=== PATIENT | female | born 1950 | race Caucasian/White ===

== ENCOUNTER 2022-04-14 08:56 | Day surgery (SDC) | payer OTHER ==
[2022-04-06 14:38] VITALS: BMI 21.9
[2022-04-14] MEDS ORDERED: ePHEDrine SULFATE 50 MG/1 ML AMPULE ONE (09:19)
[2022-04-14 11:20] VITALS: PULSE 84
[2022-04-14 11:27] VITALS: BP 101/65; RESP 18; TEMP 97.9
== END 2022-04-14 11:30 ==
LOC: FASU-ENDO 08:56
PROVIDERS: ATTEND Internal Medicine Gastroenterology
PROC: 0DJD8ZZ Inspection of Lower Intestinal Tract, Via Natural or Artificial Opening Endoscopic (ICD-10-PCS; principal; 2022-04-14 10:36)
DX: D64.9 Anemia, unspecified (principal)

== ENCOUNTER 2024-01-30 01:02 | Inpatient (IN) | payer OTHER ==
[2024-01-30] MEDS ORDERED: PIPERACILLIN/TAZOB 4.5 GM 4.5 GM/100 ML BAG IVPB ONE (02:09)
[2024-01-30] MEDS ORDERED: ACETAMINOPHEN INJECTION 100 ML ONE (02:09)
[2024-01-30] MEDS: PIPERACILLIN/TAZOBACTAM 4.5 GM VIAL IVPB ONE (02:20)
[2024-01-30] MEDS: ACETAMINOPHEN 1000 MG/100 ML BAG IVPB ONE (02:44)
[2024-01-30] MEDS ORDERED: VANCOMYCIN/WATER 1250 MG 1,250 MG/250 ML BAG IVPB ONE (02:45)
[2024-01-30] MEDS: VANCOMYCIN 1,250 MG in DEXTROSE 5%-WATER - 500 ML IVPB ONE (03:06)
[2024-01-30 03:33] LABS: VENOUS BASE EXCESS 8.7 mmol/L (-2-2); VENOUS O2 SATURATION 96.5 % (70-80); VENOUS PCO2 79.3 mmHg (38-52); VENOUS PH 7.303 (7.310-7.410)
[2024-01-30 03:37] LABS: INR 1.2 (0.83-1.09); PROTHROMBIN TIME (PATIENT) 13.7 SEC (9.7-13.0)
[2024-01-30 03:40] LABS: ACTIVATED PTT 27.8 SECONDS (25.2-36.5)
[2024-01-30 04:14] LABS: ALBUMIN 2.8 g/dl (3.4-5.0); BILIRUBIN,TOTAL 0.5 mg/dL (0.2-1); CALCIUM 8.8 mg/dL (8.5-10.1); CREATININE 0.8 mg/dL (0.55-1.3); POTASSIUM 5.8 mmol/L (3.5-5.1); TOT PROT 6.5 g/dl (6.4-8.2)
[2024-01-30 04:22] LABS: BASO % 0.3 % (0-2.0); EOS % 0.2 % (0-4.5); HEMATOCRIT 41.2 % (32.4-45.2); LYMPH % 16.5 % (8-40); MCH 31.5 pg (25.7-33.7); MCHC 31.7 g/dl (32.0-36.0); MEAN CELL VOLUME 99.5 fl (80-96); MEAN PLT VOLUME 9.5 fl (7.5-11.1); MONO % 11.8 % (3.8-10.2); NEUT % 71.2 % (42.8-82.8); PLATELET COUNT 179 10^3/uL (134-434); RBC 4.14 M/mm3 (3.60-5.2); RDW 16.3 % (11.6-15.6); WHITE BLOOD COUNT 8.3 K/mm3 (4.0-10.0)
[2024-01-30 05:28] LABS: N-TERMINAL BNP 14216.8 pg/ml (5-450)
[2024-01-30 05:36] LABS: POTASSIUM 4.4 mmol/L (3.5-5.1)
[2024-01-30] MEDS: SODIUM CHLORIDE 0.9% 500 ML INFUS.BAG IV ONE (05:37)
[2024-01-30 05:38] LABS: ALBUMIN 2.7 g/dl (3.4-5.0); CALCIUM 8.5 mg/dL (8.5-10.1)
[2024-01-30 05:39] LABS: BLOOD UREA NITROGEN 39.9 mg/dL (7-18)
[2024-01-30 05:42] LABS: CREATININE 0.9 mg/dL (0.55-1.3)
[2024-01-30 05:43] LABS: BILIRUBIN,TOTAL 0.5 mg/dL (0.2-1); TOT PROT 6.1 g/dl (6.4-8.2)
[2024-01-30 05:44] LABS: ARTERIAL BLD GAS O2 SATURATION 86.3 % (95-98); ARTERIAL BLOOD GAS BASE EXCESS 6.2 mmol/L (-2-2); ARTERIAL BLOOD GAS PO2 62.4 mmHg (80-100); ARTERIAL BLOOD GAS pH 7.237 (7.350-7.450)
[2024-01-30] MEDS ORDERED: NOREPINEPHRINE BITARTRATE 4 MG/4 ML ML IV ONE (05:50)
[2024-01-30] MEDS: NOREPINEPHRINE BITARTRATE 4,000 MCG in DEXTROSE 5%-WATER - 496 ML IV SCH (06:00)
[2024-01-30 06:18] LABS: EPI CELLS 1 /uL (0-25.1); HYALINE CASTS 3 /uL (0-3.1); PH,URINE 5.5 (5.0-8.0); URINE APPEARANCE CLOUDY; URINE BACTERIA 2431 /uL (0-1359); URINE BILIRUBIN NEGATIVE (NEGATIVE); URINE COLOR DK YELLOW; URINE GLUCOSE (UA) NEGATIVE (NEGATIVE); URINE KETONE TRACE (NEGATIVE); URINE LEUK ESTERASE NEGATIVE (NEGATIVE); URINE NITRITE NEGATIVE (NEGATIVE); URINE PROTEIN 1+ (NEGATIVE)
[2024-01-30 06:19] LABS: URINE RBC 75 /uL (0-23.9)
[2024-01-30] MEDS: SODIUM CHLORIDE 500 ML IV STA (09:45)
[2024-01-30] MEDS ORDERED: ALBUTEROL SO4 2.5/IPRATROPIUM 0.5 INH SOL 3 ML VIAL.NEB. NEB PRN (09:46)
[2024-01-30 09:47] LABS: MAGNESIUM 2.2 mg/dL (1.8-2.4)
[2024-01-30 09:51] LABS: PHOSPHOROUS 3.7 mg/dL (2.5-4.9)
[2024-01-30] MEDS: ASCORBIC ACID 500 MG TABLET (FP) PO SCH (10:36)
[2024-01-30] MEDS: APIXABAN 5 MG TABLET PO SCH (10:36)
[2024-01-30] MEDS: methylPREDNISolone NA SUCC 40 MG/1 ML VIAL IVPB SCH (10:36)
[2024-01-30] MEDS: PIPERACILLIN/TAZOB 4.5 GM 4.5 GM/100 ML BAG IVPB SCH (11:48)
[2024-01-30] MEDS: BENZTROPINE MESYLATE 0.5 MG TABLET (FP) PO SCH (11:48)
[2024-01-30] MEDS: ALBUTEROL SO4 2.5/IPRATROPIUM 0.5 INH SOL 3 ML VIAL.NEB. NEB SCH (12:00)
[2024-01-30] MEDS: LACTATED RINGERS SOLUTION 1000 ML INFUS.BAG IV ONE (14:00)
[2024-01-30] MEDS: LACTATED RINGERS SOLUTION 1,000 ML/1,000 ML INFUS.BAG IV SCH ×2 (15:29→21:45)
[2024-01-30] MEDS: VANCOMYCIN/WATER FOR INJ (PEG) 1 GM/200 ML BAG IVPB SCH (18:00)
[2024-01-30 18:44] LABS: ARTERIAL BLD GAS O2 SATURATION 96.5 % (95-98); ARTERIAL BLOOD GAS BASE EXCESS 4.7 mmol/L (-2-2); ARTERIAL BLOOD GAS PO2 79.9 mmHg (80-100); ARTERIAL BLOOD GAS pH 7.472 (7.350-7.450)
[2024-01-30 18:46] LABS: ALLENS TEST POSITIVE
[2024-01-30 18:48] LABS: VENT RATE 14
[2024-01-30] MEDS: MIRTAZAPINE 15 MG TABLET (FP) PO SCH (21:45)
[2024-01-30] MEDS: risperiDONE 0.25 MG TABLET PO SCH (21:45)
[2024-01-30] MEDS: ARTIFICIAL TEARS OPHTHALMIC DROPS OU SCH (21:47)
[2024-01-30] MEDS: MUPIROCIN 2% TOPICAL OINTMENT FOR DECOLONIZATION NS SCH (21:48)
[2024-01-30] MEDS: CHLORHEXIDINE GLUCONATE 4% CLEANSER FOR DECOLONIZATION TP SCH (21:59)
[2024-01-30] MEDS ORDERED: GLYCERIN OP SCH (22:00)
[2024-01-30] MEDS ORDERED: CARBOXYMETHYLCELL OP SCH (22:00)
[2024-01-30] MEDS ORDERED: [UNRECOGNIZED DRUG - OTHER] OP SCH (22:00)
[2024-01-30] MEDS: VANCOMYCIN 1 GM PREMIX (F) 1 GM/200 ML BAG IVPB SCH (22:39)
[2024-01-30] MEDS: PIPERACILLIN/TAZOB 4.5 GM 4.5 GM in DEXTROSE 5%-WATER 100 ML IVPB SCH (22:39)
[2024-01-31] MEDS: PIPERACILLIN/TAZOB 3.375 GM 3.375 GM in DEXTROSE 5%-WATER - 50 ML IVPB SCH (01:24)
[2024-01-31 06:28] LABS: BASO % 0.8 % (0-2.0); EOS % 0.3 % (0-4.5); HEMATOCRIT 39.1 % (32.4-45.2); HEMOGLOBIN 12.3 GM/dL (10.7-15.3); LYMPH % 13.6 % (8-40); MCH 31.8 pg (25.7-33.7); MCHC 31.6 g/dl (32.0-36.0); MEAN CELL VOLUME 100.7 fl (80-96); MONO % 8.7 % (3.8-10.2); NEUT % 76.6 % (42.8-82.8); PLATELET COUNT 119 10^3/uL (134-434); RBC 3.88 M/mm3 (3.60-5.2); RDW 16.5 % (11.6-15.6); WHITE BLOOD COUNT 7.8 K/mm3 (4.0-10.0)
[2024-01-31 06:54] LABS: CALCIUM 8.6 mg/dL (8.5-10.1)
[2024-01-31 06:55] LABS: ALBUMIN 2.4 g/dl (3.4-5.0); BLOOD UREA NITROGEN 32.6 mg/dL (7-18)
[2024-01-31 06:58] LABS: CREATININE 0.6 mg/dL (0.55-1.3)
[2024-01-31 06:59] LABS: BILIRUBIN,TOTAL 0.6 mg/dL (0.2-1)
[2024-01-31 07:00] LABS: TOT PROT 5.4 g/dl (6.4-8.2)
[2024-01-31 07:43] LABS: ARTERIAL BLD GAS O2 SATURATION 93.3 % (95-98); ARTERIAL BLOOD GAS BASE EXCESS 4.8 mmol/L (-2-2); ARTERIAL BLOOD GAS PO2 72.7 mmHg (80-100); ARTERIAL BLOOD GAS pH 7.335 (7.350-7.450)
[2024-01-31 07:45] LABS: ALLENS TEST POSITIVE
[2024-01-31] MEDS: LACTATED RINGERS SOLUTION 1000 ML INFUS.BAG IV ONE (08:21)
[2024-01-31] MEDS: SERTRALINE HCL 50 MG TABLET (FP) PO SCH (09:06)
[2024-01-31] MEDS ORDERED: ACETAMINOPHEN 325 MG TABLET (FP) PO PRN (17:51)
[2024-01-31] MEDS: dilTIAZem HCL 50 MG/10 ML - 10 ML VIAL IVPUSH PRN (18:14)
[2024-01-31] MEDS: ACETAMINOPHEN 1000 MG/100 ML BAG IVPB PRN (18:36)
[2024-02-01 06:32] LABS: BASO % 0.5 % (0-2.0); EOS % 0.4 % (0-4.5); HEMATOCRIT 40.8 % (32.4-45.2); HEMOGLOBIN 12.9 GM/dL (10.7-15.3); LYMPH % 15.1 % (8-40); MCH 31.7 pg (25.7-33.7); MCHC 31.6 g/dl (32.0-36.0); MEAN CELL VOLUME 100.2 fl (80-96); MEAN PLT VOLUME 8.7 fl (7.5-11.1); MONO % 9.8 % (3.8-10.2); NEUT % 74.2 % (42.8-82.8); PLATELET COUNT 161 10^3/uL (134-434); RBC 4.08 M/mm3 (3.60-5.2); RDW 16.3 % (11.6-15.6); WHITE BLOOD COUNT 7.5 K/mm3 (4.0-10.0)
[2024-02-01 06:42] LABS: ALBUMIN 2.6 g/dl (3.4-5.0); BLOOD UREA NITROGEN 26.2 mg/dL (7-18); CALCIUM 8.8 mg/dL (8.5-10.1)
[2024-02-01 06:46] LABS: CREATININE 0.6 mg/dL (0.55-1.3)
[2024-02-01 06:48] LABS: BILIRUBIN,TOTAL 0.5 mg/dL (0.2-1); TOT PROT 5.8 g/dl (6.4-8.2)
[2024-02-01] MEDS: LACTATED RINGERS SOLUTION 1,000 ML/1,000 ML INFUS.BAG IV SCH (11:38)
[2024-02-01] MEDS: dilTIAZem HCL 30 MG TABLET PO SCH (11:38)
[2024-02-02] MEDS ORDERED: dilTIAZem HCL 50 MG/10 ML - 10 ML VIAL IVPUSH PRN (14:46)
[2024-02-02] MEDS: ALBUTEROL SO4 2.5/IPRATROPIUM 0.5 INH SOL 3 ML VIAL.NEB. NEB SCH (15:52)
[2024-02-02] MEDS: dilTIAZem HCL 30 MG TABLET PO SCH (17:56)
[2024-02-02] MEDS: LACTATED RINGERS SOLUTION 1,000 ML/1,000 ML INFUS.BAG IV SCH (17:57)
[2024-02-02] MEDS ORDERED: PIPERACILLIN/TAZOB 3.375 GM 3.375 GM in DEXTROSE 5%-WATER - 50 ML IVPB SCH (18:00)
[2024-02-02] MEDS: PIPERACILLIN/TAZOB 3.375 GM 50 ML IVPB SCH (19:13)
[2024-02-02] MEDS: MUPIROCIN 2% TOPICAL OINTMENT FOR DECOLONIZATION NS SCH (21:56)
[2024-02-02] MEDS: ARTIFICIAL TEARS OPHTHALMIC DROPS OU SCH (22:33)
[2024-02-02] MEDS: MIRTAZAPINE 15 MG TABLET (FP) PO SCH (22:34)
[2024-02-02] MEDS: APIXABAN 5 MG TABLET PO SCH (22:34)
[2024-02-02] MEDS: BENZTROPINE MESYLATE 0.5 MG TABLET (FP) PO SCH (22:34)
[2024-02-02] MEDS: risperiDONE 0.25 MG TABLET PO SCH (22:34)
[2024-02-02] MEDS: CHLORHEXIDINE GLUCONATE 4% CLEANSER FOR DECOLONIZATION TP SCH (22:45)
[2024-02-03 08:32] LABS: POTASSIUM 4.4 mmol/L (3.5-5.1)
[2024-02-03 08:43] LABS: ALBUMIN 2.8 g/dl (3.4-5.0); BLOOD UREA NITROGEN 27.7 mg/dL (7-18); CALCIUM 9.4 mg/dL (8.5-10.1)
[2024-02-03 08:46] LABS: CREATININE 0.6 mg/dL (0.55-1.3)
[2024-02-03 08:48] LABS: BILIRUBIN,TOTAL 0.6 mg/dL (0.2-1)
[2024-02-03] MEDS: ASCORBIC ACID 500 MG TABLET (FP) PO SCH (10:40)
[2024-02-03] MEDS: SERTRALINE HCL 50 MG TABLET (FP) PO SCH (10:41)
[2024-02-03] MEDS: methylPREDNISolone NA SUCC 40 MG/1 ML VIAL IVPB SCH (10:41)
[2024-02-05 01:27] VITALS: RESP 18
[2024-02-05] MEDS: predniSONE 20 MG TABLET (UD) PO SCH (09:34)
[2024-02-05 09:46] LABS: BASO % 0.1 % (0-2.0); EOS % 0.1 % (0-4.5); LYMPH % 13.1 % (8-40); MCH 31.9 pg (25.7-33.7); MCHC 31.9 g/dl (32.0-36.0); MEAN CELL VOLUME 99.9 fl (80-96); MEAN PLT VOLUME 8.6 fl (7.5-11.1); MONO % 10.6 % (3.8-10.2); NEUT % 76.1 % (42.8-82.8); PLATELET COUNT 198 10^3/uL (134-434); RDW 17.1 % (11.6-15.6); WHITE BLOOD COUNT 7.9 K/mm3 (4.0-10.0)
[2024-02-05 10:18] LABS: POTASSIUM 4.2 mmol/L (3.5-5.1)
[2024-02-05 10:19] LABS: CALCIUM 9.5 mg/dL (8.5-10.1)
[2024-02-05 10:20] LABS: BLOOD UREA NITROGEN 28.1 mg/dL (7-18)
[2024-02-05 10:23] LABS: CREATININE 0.6 mg/dL (0.55-1.3)
[2024-02-05 12:30] VITALS: BMI 27.8
[2024-02-05 14:31] VITALS: BP 104/71; PULSE 87; TEMP 99.3
== END 2024-02-05 16:55 | DRG 871 ==
LOC: JER 01:02 → JERBED 05:48 → JICU 08:30 → J4S 02-02 15:01
PROVIDERS: ADMIT Internal Medicine Pulmonary Disease; ATTEND Internal Medicine
DX: A41.9 Sepsis, unspecified organism (principal); J18.9 Pneumonia, unspecified organism; J96.22 Acute and chronic respiratory failure with hypercapnia; R65.21 Severe sepsis with septic shock; J44.1 Chronic obstructive pulmonary disease with (acute) exacerbation; I48.92 Unspecified atrial flutter; F41.9 Anxiety disorder, unspecified; F20.9 Schizophrenia, unspecified; F31.9 Bipolar disorder, unspecified; I48.91 Unspecified atrial fibrillation; G20.C Parkinsonism, unspecified; I27.20 Pulmonary hypertension, unspecified
CPT/HCPCS: 0241U-QW; 36415; 36600; 71045-TC-FY; 71275-TC; 80048; 80053; 81003; 82803; 82962; 83605; 83735; 83880; 84100; 84484; 85025; 85610; 85730; 87040; 87086; 87481; 87899; 93005; 93010; 93306-TC; 94640; 94660; 97161-GP; 99291; J0131; Q9967

== ENCOUNTER 2024-02-16 00:43 | Inpatient (IN) | payer OTHER ==
[2024-02-16 01:22] LABS: BASO % 0.3 % (0-2.0); EOS % 0.6 % (0-4.5); HEMATOCRIT 43.5 % (32.4-45.2); HEMOGLOBIN 13.7 GM/dL (10.7-15.3); LYMPH % 8.4 % (8-40); MCH 32.2 pg (25.7-33.7); MCHC 31.6 g/dl (32.0-36.0); MEAN CELL VOLUME 102.1 fl (80-96); MEAN PLT VOLUME 9.7 fl (7.5-11.1); NEUT % 78.7 % (42.8-82.8); PLATELET COUNT 149 10^3/uL (134-434); RBC 4.26 M/mm3 (3.60-5.2); RDW 17.3 % (11.6-15.6); WHITE BLOOD COUNT 8.5 K/mm3 (4.0-10.0)
[2024-02-16 01:26] LABS: VENOUS O2 SATURATION 41.9 % (70-80)
[2024-02-16] MEDS ORDERED: ACETAMINOPHEN INJECTION 100 ML ONE (01:42)
[2024-02-16 01:45] LABS: POTASSIUM 4.6 mmol/L (3.5-5.1)
[2024-02-16 01:47] LABS: ALBUMIN 2.8 g/dl (3.4-5.0); BLOOD UREA NITROGEN 35.8 mg/dL (7-18); CALCIUM 9.5 mg/dL (8.5-10.1)
[2024-02-16] MEDS: ACETAMINOPHEN 1000 MG/100 ML BAG IVPB ONE (01:47)
[2024-02-16 01:50] LABS: CREATININE 0.6 mg/dL (0.55-1.3)
[2024-02-16 01:52] LABS: BILIRUBIN,TOTAL 0.5 mg/dL (0.2-1); TOT PROT 6.2 g/dl (6.4-8.2); VENOUS PH 7.187 (7.310-7.410)
[2024-02-16 01:55] LABS: N-TERMINAL BNP 13777.9 pg/ml (5-450)
[2024-02-16 01:56] LABS: ARTERIAL BLD GAS O2 SATURATION 96.7 % (95-98); ARTERIAL BLOOD GAS PO2 109.2 mmHg (80-100); ARTERIAL BLOOD GAS pH 7.239 (7.350-7.450)
[2024-02-16] MEDS ORDERED: VANCOMYCIN HCL 1,500 MG in DEXTROSE 5%-WATER - 500 ML IVPB ONE (02:14)
[2024-02-16] MEDS ORDERED: CEFEPIME HCL/D5W 1 GM/50 ML BAG IVPB ONE (02:32)
[2024-02-16] MEDS: CEFEPIME HCL 1 GM VIAL (RESTRICTED TO ID) IVPB ONE (02:42)
[2024-02-16 02:55] LABS: EPI CELLS 6 /uL (0-25.1); HYALINE CASTS 1 /uL (0-3.1); PH,URINE 5.5 (5.0-8.0); URINE APPEARANCE CLEAR; URINE BACTERIA 8 /uL (0-1359); URINE BILIRUBIN 1+ (NEGATIVE); URINE COLOR DK YELLOW; URINE GLUCOSE (UA) NEGATIVE (NEGATIVE); URINE KETONE TRACE (NEGATIVE); URINE LEUK ESTERASE NEGATIVE (NEGATIVE); URINE NITRITE NEGATIVE (NEGATIVE); URINE PROTEIN 1+ (NEGATIVE); URINE RBC 15 /uL (0-23.9); URINE WBC 10 /uL (0-25.8)
[2024-02-16] MEDS: VANCOMYCIN HCL IN 5 % DEXTROSE 1,500 MG/300 ML BAG IVPB ONE (03:40)
[2024-02-16 03:54] LABS: ARTERIAL BLD GAS O2 SATURATION 96.9 % (95-98); ARTERIAL BLOOD GAS BASE EXCESS 12.4 mmol/L (-2-2); ARTERIAL BLOOD GAS PO2 114.5 mmHg (80-100); ARTERIAL BLOOD GAS pH 7.214 (7.350-7.450)
[2024-02-16 04:33] LABS: ALLENS TEST POSITIVE
[2024-02-16 04:35] LABS: VENT RATE 12
[2024-02-16] MEDS ORDERED: ALBUTEROL SO4 2.5/IPRATROPIUM 0.5 INH SOL 3 ML VIAL.NEB. NEB ONE (04:53)
[2024-02-16] MEDS: methylPREDNISolone NA SUCC 125 MG/2 ML VIAL IVPUSH ONE (04:57)
[2024-02-16] MEDS: FUROSEMIDE 40 MG/4 ML INJECTABLE VIAL IVPUSH ONE (04:57)
[2024-02-16] MEDS ORDERED: METOPROLOL TARTRATE 5 MG/5 ML VIAL IVPUSH PRN (05:50)
[2024-02-16] MEDS: LEVALBUTEROL HCL 0.31 MG/3 ML VIAL.NEB IH SCH (06:35)
[2024-02-16 06:37] LABS: ARTERIAL BLD GAS O2 SATURATION 98.8 % (95-98); ARTERIAL BLOOD GAS BASE EXCESS 8.6 mmol/L (-2-2); ARTERIAL BLOOD GAS PO2 169.5 mmHg (80-100); ARTERIAL BLOOD GAS pH 7.259 (7.350-7.450)
[2024-02-16] MEDS: ENOXAPARIN NA (PORCINE) 40 MG/0.4 ML DISP.SYRIN SQ ONE (06:39)
[2024-02-16 07:05] LABS: VENT RATE 20
[2024-02-16 07:08] LABS: HEMATOCRIT 40.9 % (32.4-45.2); HEMOGLOBIN 12.7 GM/dL (10.7-15.3); MCHC 30.9 g/dl (32.0-36.0); MEAN CELL VOLUME 103.4 fl (80-96); MEAN PLT VOLUME 9.7 fl (7.5-11.1); PLATELET COUNT 143 10^3/uL (134-434); RBC 3.96 M/mm3 (3.60-5.2); RDW 16.9 % (11.6-15.6); WHITE BLOOD COUNT 8.7 K/mm3 (4.0-10.0)
[2024-02-16 07:50] LABS: POTASSIUM 4.5 mmol/L (3.5-5.1)
[2024-02-16 07:52] LABS: ALBUMIN 2.7 g/dl (3.4-5.0); BLOOD UREA NITROGEN 35.9 mg/dL (7-18); CALCIUM 9.3 mg/dL (8.5-10.1); MAGNESIUM 2.1 mg/dL (1.8-2.4)
[2024-02-16 07:56] LABS: CREATININE 0.6 mg/dL (0.55-1.3); PHOSPHOROUS 3.7 mg/dL (2.5-4.9)
[2024-02-16 07:57] LABS: BILIRUBIN,TOTAL 0.6 mg/dL (0.2-1); TOT PROT 6.1 g/dl (6.4-8.2)
[2024-02-16] MEDS ORDERED: ACETAMINOPHEN 1000 MG/100 ML BAG IVPB PRN (08:24)
[2024-02-16] MEDS: METOPROLOL TARTRATE 5 MG/5 ML VIAL IVPB SCH (09:52)
[2024-02-16] MEDS: ARTIFICIAL TEARS OPHTHALMIC DROPS OU SCH (09:53)
[2024-02-16] MEDS: BENZTROPINE MESYLATE 0.5 MG TABLET (FP) PO SCH (09:55)
[2024-02-16] MEDS: ENOXAPARIN NA (PORCINE) 80 MG/0.8 ML DISP.SYRIN SQ SCH (09:55)
[2024-02-16] MEDS: FUROSEMIDE 40 MG/4 ML INJECTABLE VIAL IVPUSH SCH (09:57)
[2024-02-16] MEDS: SERTRALINE HCL 50 MG TABLET (FP) PO SCH (09:57)
[2024-02-16] MEDS: BUDESONIDE/FORMETEROL FUMARATE 160/4.5 mcg INHALER IH SCH (10:16)
[2024-02-16 11:34] LABS: ARTERIAL BLD GAS O2 SATURATION 96.8 % (95-98); ARTERIAL BLOOD GAS BASE EXCESS 15.2 mmol/L (-2-2); ARTERIAL BLOOD GAS PO2 95.8 mmHg (80-100); ARTERIAL BLOOD GAS pH 7.369 (7.350-7.450)
[2024-02-16 11:35] LABS: ALLENS TEST POSITIVE
[2024-02-16] MEDS: AZITHROMYCIN IVPB 500 MG/250 ML BAG IVPB ONE (12:09)
[2024-02-16] MEDS: CEFTRIAXONE 1 G/50 ML PREMIX 50 ML IVPB SCH (12:09)
[2024-02-16] MEDS: methylPREDNISolone NA SUCC 40 MG/1 ML VIAL IVPUSH SCH (13:02)
[2024-02-16] MEDS: SODIUM CHLORIDE 0.9% 250 ML INFUS.BAG IV ONE (16:04)
[2024-02-16] MEDS: DEXTROSE 5%-0.45% SALINE 1,000 ML IV SCH (16:47)
[2024-02-16] MEDS: risperiDONE 0.25 MG TABLET PO SCH (21:54)
[2024-02-16] MEDS: MIRTAZAPINE 15 MG TABLET (FP) PO SCH (21:54)
[2024-02-17 08:18] LABS: BASO % 0.2 % (0-2.0); EOS % 0.1 % (0-4.5); HEMATOCRIT 36.9 % (32.4-45.2); HEMOGLOBIN 11.7 GM/dL (10.7-15.3); MCH 31.8 pg (25.7-33.7); MCHC 31.7 g/dl (32.0-36.0); MEAN CELL VOLUME 100.2 fl (80-96); MEAN PLT VOLUME 9.9 fl (7.5-11.1); MONO % 3.2 % (3.8-10.2); NEUT % 90.5 % (42.8-82.8); PLATELET COUNT 151 10^3/uL (134-434); RBC 3.68 M/mm3 (3.60-5.2); RDW 16.5 % (11.6-15.6); WHITE BLOOD COUNT 7.5 K/mm3 (4.0-10.0)
[2024-02-17 08:36] LABS: POTASSIUM 3.7 mmol/L (3.5-5.1)
[2024-02-17 08:47] LABS: ALBUMIN 2.5 g/dl (3.4-5.0); CALCIUM 8.7 mg/dL (8.5-10.1); MAGNESIUM 1.9 mg/dL (1.8-2.4)
[2024-02-17 08:50] LABS: CREATININE 0.7 mg/dL (0.55-1.3)
[2024-02-17 08:51] LABS: PHOSPHOROUS 2.4 mg/dL (2.5-4.9)
[2024-02-17 08:52] LABS: BILIRUBIN,TOTAL 0.5 mg/dL (0.2-1); TOT PROT 5.6 g/dl (6.4-8.2)
[2024-02-17] MEDS: POLYETHYLENE GLYCOL (HEALTHYLAX) 3350 17 GM PACKET PO SCH (11:19)
[2024-02-17] MEDS: APIXABAN 5 MG TABLET PO SCH (11:19)
[2024-02-17] MEDS: AZITHROMYCIN IVPB 250 MG in DEXTROSE 5%-WATER - 250 ML IVPB SCH (11:20)
[2024-02-17] MEDS: POTASSIUM PHOSPHATE 15 MM in SODIUM CHLORIDE 250 ML IVPB ONE (11:50)
[2024-02-18 08:03] LABS: BASO % 0.1 % (0-2.0); HEMATOCRIT 37.9 % (32.4-45.2); LYMPH % 10.5 % (8-40); MCH 31.6 pg (25.7-33.7); MCHC 31.7 g/dl (32.0-36.0); MEAN CELL VOLUME 99.6 fl (80-96); MEAN PLT VOLUME 9.5 fl (7.5-11.1); MONO % 3.8 % (3.8-10.2); NEUT % 85.6 % (42.8-82.8); PLATELET COUNT 147 10^3/uL (134-434); RDW 16.1 % (11.6-15.6); WHITE BLOOD COUNT 5.8 K/mm3 (4.0-10.0)
[2024-02-18 08:16] LABS: POTASSIUM 4.1 mmol/L (3.5-5.1)
[2024-02-18 08:23] LABS: ALBUMIN 2.6 g/dl (3.4-5.0); BLOOD UREA NITROGEN 40.9 mg/dL (7-18)
[2024-02-18 08:26] LABS: CREATININE 0.5 mg/dL (0.55-1.3); PHOSPHOROUS 2.8 mg/dL (2.5-4.9)
[2024-02-18 08:28] LABS: BILIRUBIN,TOTAL 0.5 mg/dL (0.2-1); TOT PROT 5.7 g/dl (6.4-8.2)
[2024-02-18] MEDS: PANTOPRAZOLE SODIUM 40 MG VIAL IVPUSH SCH (11:00)
[2024-02-18] MEDS: INSULIN ASPART SLIDING SCALE (NOVOLOG) 1 VIAL SQ SCH (16:48)
[2024-02-19 08:39] LABS: HEMATOCRIT 38.6 % (32.4-45.2); HEMOGLOBIN 12.6 GM/dL (10.7-15.3); MCH 31.9 pg (25.7-33.7); MCHC 32.8 g/dl (32.0-36.0); MEAN CELL VOLUME 97.5 fl (80-96); PLATELET COUNT 154 10^3/uL (134-434); RBC 3.96 M/mm3 (3.60-5.2); RDW 16.4 % (11.6-15.6); WHITE BLOOD COUNT 5.1 K/mm3 (4.0-10.0)
[2024-02-19] MEDS: CALCIUM CHLORIDE 1 GM/10 ML *DISP.SYRIN IVPUSH ONE (10:17)
[2024-02-19] MEDS: CALCIUM GLUCONATE 10% - 1,000 MG/10 ML VIAL IVPUSH ONE (10:42)
[2024-02-19] MEDS ORDERED: BISACODYL 10 MG SUPP.RECT PR PRN ×2 (11:00→22:00)
[2024-02-19 11:54] LABS: POTASSIUM 3.9 mmol/L (3.5-5.1)
[2024-02-19 11:56] LABS: CALCIUM 9.1 mg/dL (8.5-10.1)
[2024-02-19 11:57] LABS: ALBUMIN 2.6 g/dl (3.4-5.0); BLOOD UREA NITROGEN 39.5 mg/dL (7-18); MAGNESIUM 2.2 mg/dL (1.8-2.4)
[2024-02-19 12:00] LABS: CREATININE 0.7 mg/dL (0.55-1.3); PHOSPHOROUS 2.9 mg/dL (2.5-4.9)
[2024-02-19 12:02] LABS: BILIRUBIN,TOTAL 0.6 mg/dL (0.2-1); TOT PROT 5.9 g/dl (6.4-8.2)
[2024-02-19 12:45] VITALS: BMI 28.9
[2024-02-19] MEDS: methylPREDNISolone NA SUCC 40 MG/1 ML VIAL IVPUSH SCH (22:15)
[2024-02-20 08:17] LABS: HEMOGLOBIN 12.4 GM/dL (10.7-15.3); MCH 32.1 pg (25.7-33.7); MCHC 32.7 g/dl (32.0-36.0); MEAN CELL VOLUME 98.2 fl (80-96); MEAN PLT VOLUME 9.3 fl (7.5-11.1); PLATELET COUNT 150 10^3/uL (134-434); RBC 3.87 M/mm3 (3.60-5.2); RDW 16.2 % (11.6-15.6); WHITE BLOOD COUNT 5.8 K/mm3 (4.0-10.0)
[2024-02-20 08:23] LABS: POTASSIUM 4.2 mmol/L (3.5-5.1)
[2024-02-20 08:27] LABS: BLOOD UREA NITROGEN 41.7 mg/dL (7-18); CALCIUM 8.7 mg/dL (8.5-10.1)
[2024-02-20 08:31] LABS: CREATININE 0.7 mg/dL (0.55-1.3)
[2024-02-21 09:02] LABS: HEMOGLOBIN 13.1 GM/dL (10.7-15.3); MCH 31.1 pg (25.7-33.7); MCHC 31.2 g/dl (32.0-36.0); MEAN CELL VOLUME 99.6 fl (80-96); MEAN PLT VOLUME 9.3 fl (7.5-11.1); PLATELET COUNT 160 10^3/uL (134-434); RBC 4.22 M/mm3 (3.60-5.2); RDW 16.6 % (11.6-15.6); WHITE BLOOD COUNT 6.3 K/mm3 (4.0-10.0)
[2024-02-21 09:14] LABS: POTASSIUM 4.6 mmol/L (3.5-5.1)
[2024-02-21 09:15] LABS: BLOOD UREA NITROGEN 39.1 mg/dL (7-18); CALCIUM 9.2 mg/dL (8.5-10.1)
[2024-02-21 09:19] LABS: CREATININE 0.6 mg/dL (0.55-1.3)
[2024-02-21] MEDS: AZITHROMYCIN IVPB 250 MG in DEXTROSE 5%-WATER - 250 ML IVPB SCH (22:50)
[2024-02-22 09:17] LABS: HEMATOCRIT 41.3 % (32.4-45.2); HEMOGLOBIN 13.3 GM/dL (10.7-15.3); MCH 31.6 pg (25.7-33.7); MCHC 32.3 g/dl (32.0-36.0); MEAN CELL VOLUME 97.8 fl (80-96); PLATELET COUNT 168 10^3/uL (134-434); RBC 4.22 M/mm3 (3.60-5.2); RDW 16.9 % (11.6-15.6); WHITE BLOOD COUNT 8.5 K/mm3 (4.0-10.0)
[2024-02-22 09:56] LABS: POTASSIUM 4.1 mmol/L (3.5-5.1)
[2024-02-22 10:17] LABS: CALCIUM 9.1 mg/dL (8.5-10.1)
[2024-02-22 10:18] LABS: BLOOD UREA NITROGEN 37.3 mg/dL (7-18)
[2024-02-22 10:19] LABS: CREATININE 0.6 mg/dL (0.55-1.3)
[2024-02-22] MEDS: methylPREDNISolone NA SUCC 40 MG/1 ML VIAL IVPUSH SCH (10:53)
[2024-02-22] MEDS: metoPROLOL SUCCINATE 25 MG TAB.SR.24H (FP) PO SCH (10:54)
[2024-02-22] MEDS: PANTOPRAZOLE 40 MG TABLET PO SCH (10:56)
[2024-02-22] MEDS: CEFTRIAXONE 1 G/50 ML PREMIX 50 ML IVPB SCH (10:58)
[2024-02-22 15:37] VITALS: BP 148/82; RESP 18; TEMP 98.8
[2024-02-22 15:47] VITALS: PULSE 100
== END 2024-02-22 16:53 | disposition home or self-care (01) | DRG 189 ==
LOC: JER 00:43 → JERBED 03:17 → J4S 05:23
PROVIDERS: ADMIT Internal Medicine
DX: J96.22 Acute and chronic respiratory failure with hypercapnia (principal); J18.9 Pneumonia, unspecified organism; I50.23 Acute on chronic systolic (congestive) heart failure; I48.92 Unspecified atrial flutter; J44.1 Chronic obstructive pulmonary disease with (acute) exacerbation; I11.0 Hypertensive heart disease with heart failure; J96.21 Acute and chronic respiratory failure with hypoxia; F41.9 Anxiety disorder, unspecified; F25.0 Schizoaffective disorder, bipolar type; G20.C Parkinsonism, unspecified
CPT/HCPCS: 36415; 36600; 71045-TC-FY; 80048; 80053; 80061; 81003; 82803; 82962; 83036; 83605; 83735; 83880; 84100; 84443; 84484; 85025; 85027; 87040; 87086; 87635; 93005; 93010; 94660; 94761; 99291; J0131